=== PATIENT | male | born 1975 | race Caucasian/White ===

== ENCOUNTER → 2022-11-22 09:09 | Outpatient (BNVA) | payer BC, SELFPAY | PROVIDERS: Family Provider Family Medicine; PCP Family Medicine; Visit Provider Family Medicine | DX: M54.50 Low back pain, unspecified (principal); M47.816 Spondylosis without myelopathy or radiculopathy, lumbar region | CPT/HCPCS: 72114 ==

== ENCOUNTER 2022-12-18 09:48 | Outpatient (CLI) | payer BC, SELFPAY ==
--- NOTE | 2022-12-18 10:00 | CT_ITS ---
WS: [id number] Lumbar spine CT with contrast. HISTORY: worsening chronic low back pain, xray postive for degeneration. TECHNIQUE: Contiguous 2.0 mm axial imaging performed from T12 through the mid sacral level. Bone and soft tissue windows reviewed . Sagittal and coronal reformats are submitted and reviewed. DLP: 689.[address] scans at [facility] use at least one of these dose optimization techniques: automated e xposure control; mA and/or kV adjustment per patient size (includes targeted exams where dose is matc hed to clinical indication); or iterative reconstruction. COMPARISON: Lumbar spine radiographs 11/22/2022 Contrast: Omnipaque 350. Very slight anterolisthesis of L5. Mild disc space narrowing at L5-S1. No vertebral body fracture. Pa rtial sacralization on the RIGHT of L5-S1. L1-L2: Mild disc bulging with shallow LEFT foraminal disc protrusion. L2-L3: Mild annular disc bulging encroaching upon the ventral thecal sac. Mild central and subarticul ar recess encroachment. L3-L4: Mild annular disc bulging encroaching upon the ventral thecal sac. Disc is asymmetric to the R IGHT. Mild central, bilateral subarticular recess and foraminal stenosis. L4-L5: Mild annular disc bulging with mild facet joint arthritis. Moderate bilateral foraminal stenos is with mild encroachment upon the subarticular recesses. L5-S1: No stenosis. No abnormal enhancement. CT/CT lumbar spine w con [id number] IMPRESSION: 1. Moderate bilateral foraminal stenosis at L4-5. 2. No significant central stenosis. There is mild central stenosis at L2-3 and L3-4. 3. Partial sacralization of L5 on the RIGHT.
[2022-12-18] MEDS: iohexol 350 mg/mL 500 mL Btl (per mL) IV (10:14)
== END 2022-12-18 09:49 | disposition home or self-care (01) ==
PROVIDERS: PCP Family Medicine; Visit Provider Family Medicine
DX: M48.061 Spinal stenosis, lumbar region without neurogenic claudication (principal)
CPT/HCPCS: 72132; Q9967

== ENCOUNTER 2024-04-14 14:50 | Outpatient (CLI) | payer BC, SELFPAY | END 2024-04-14 14:51 | disposition home or self-care (01) | LOC: SLEEP 14:51 | PROVIDERS: PCP Family Medicine; Visit Provider Family Medicine | DX: G47.33 Obstructive sleep apnea (adult) (pediatric) (principal) | CPT/HCPCS: G0399 ==